=== PATIENT | female | born 1960 | race Caucasian/White ===

== ENCOUNTER 2018-07-27 17:52 | Inpatient (IN) ==
[2018-07-27] MEDS ORDERED: Ibuprofen 600 MG TABLET PO ONE (18:15)
--- NOTE | 2018-07-27 18:17 | Emergency Department Note ---
Disposition Clinical Impression: UTI (urinary tract infection), Pyelonephritis, Sepsis Disposition: Admitted As Inpatient Condition: Fair Referrals: Lalitha Heller CNP [Primary Care Provider] - Forms: ED Satisfaction Letter, Work/School Release Time of Disposition: 19:47 ([facility]) Abdominal Pain HPI - General Chief Complaint: ED General Medical Stated Complaint: chills back pain, nausea Time Seen by Provider: 07/27/18 18:02 Source: patient Mode of arrival: ambulatory Limitations: no limitations Nursing Notes Reviewed: Yes Vital Signs Reviewed: Yes - History of Present Illness HPI Narrative: Fever abdominal pain and dysuria for 3-4 days. Patient does had increasing fever flank pain chills aches all over feeling of tired and weak now. Patient states that she is eating and drinking she denies any vomiting but she is naus eated. She denies any blurred vision double vision loss vision. States that she has had no diarrhea Pt Subjective Complaint: abdominal pain, flank pain Onset (ago): day(s) (4) Consistency: constant, Worsening Location: diffuse Pain Severity: moderate, severe Pain Scale: 8 Quality: aching Radiation: none Improves with: nothing Worsens with: nothing Associated symptoms: Reports: nausea, fever, chills, dysuria. Denies: vomiting, diarrhea, constipation, hematemesis, hematochezia, melena, hematuria, anorexia, syncope Treatments prior to arrival: none - Related Data Home Medications Medication Instructions Recorded Confirmed Unable To Obtain [Unable to Obtain] 07/27/18 07/27/18 Allergies Allergy/AdvReac Type Severity Reaction Status Date / Time Sulfa (Sulfonamide AdvReac See Verified 07/27/18 18:02 Antibiotics) Comments All systems ED: reviewed and negative except as stated. Constitutional: Reports: fever, chills, weakness Eyes: Denies: eye pain, eye discharge ENT ED: Denies: ear pain, throat pain Cardiovascular: Denies: chest pain, palpitations Respiratory: Denies: cough, dyspnea, wheezes Gastrointestinal: Reports: abdominal pain, nausea. Denies: vomiting Genitourinary: Reports: urgency, dysuria, frequency Musculoskeletal: Reports: back pain. Denies: neck pain Integumentary: Denies: rash, abrasion Neurological: Reports: weakness. Denies: headache Psychiatric: Denies: anxiety Endocrine: Reports: fatigue Hematological/Lymphatic: Denies: easy bleeding Allergic/Immunologic: Denies: facial swelling Abdominal Pain PMH - Past Medical History Medical history: Reports: hypertension, thyroid disease Female Surgical History: Reports: , cholecystectomy Psychiatric history: Reports: ADHD - Social History Smoking status: Never smoker Alcohol use: Reports: none Drug use: Reports: none Physical Exam - General Limitations: no limitations General appearance: alert, in no apparent distress - Head Head exam: atraumatic, normocephalic, normal inspection, other (Overall poor dentition) - Eye Eye exam: Present: normal appearance, PERRL, EOMI - ENT ENT exam: normal exam, normal oropharynx, mucous membranes dry, TM's normal bilaterally, normal external ear exam, other (Thickened secretions developed fetid breath) - Neck Neck exam: Present: normal inspection, full ROM, trachea midline - Chest Chest inspection: Present: normal inspection, symmetric chest wall rise - Respiratory Respiratory exam: Present: normal lung sounds bilaterally - Cardiovascular Cardiovascular exam: Present: tachycardia, systolic murmur - Abdominal Exam Abdominal exam: Present: soft, Non-Tender, normal bowel sounds. Absent: mass, pulsatile mass - Expanded Upper Extremity Exam Shoulder exam: Present: normal inspection, full ROM Arm exam: Present: normal inspection, full ROM Elbow exam: Present: normal inspection, full ROM Forearm/Wrist exam: Present: normal inspection, full ROM Hand exam: Present: normal inspection, full ROM Vascular exam: Normal: capillary refill, radial pulse - Expanded Lower Extremity Exam Hip/Pelvis exam: Present: normal inspection, full ROM Upper leg exam: Present: normal inspection, full ROM Knee exam: Present: normal inspection, full ROM Lower leg exam: Present: normal inspection, full ROM Ankle exam: Present: normal inspection, full ROM Foot/toe exam: Present: normal inspection, full ROM Neurovascular/Tendon exam: Present: normal capillary refill, normal fine/light touch. Absent: motor deficit, sensory deficit, tendon deficit Gait: observed and normal - Back Exam Back exam: Present: normal inspection, full ROM, tenderness - Neurological Exam Neurological exam: Present: alert, oriented X3, CN II-XII intact, normal gait - Psychiatric Psychiatric exam: Present: normal affect, normal mood - Skin Skin exam: Present: warm, dry, intact, normal color Course Course Narrative: Patient was immediately seen and examined vital signs tachycardic febrile patient showing early evidence of criteria for sepsis direction will be guided the swelling started on antibiotics given fluids and workup done for sepsis based on history - sepsis likely genitourinary Patient shows signs that she is got a urinary tract infection most likely consistent with a pyelonephritis which also she meet sepsis criteria as a result she will be admitted to the hospital for further management and IV antibiotics Coleen Fisher spoke with Dr. Haywood patient be transferred to [facility] - Reevaluation(s) Reevaluation #1: Patient may criteria by SIRS as well as by lactic acid anabolic's were started protocols were followed transferred to [facility] at this time patient is not showing signs of septic shock Vital Signs Temperature 102.9 F H 07/27/18 18:02 Pulse Rate 124 07/27/18 18:02 Respiratory Rate 16 07/27/18 18:02 Blood Pressure 119/80 07/27/18 18:02 O2 Sat by Pulse Oximetry 97 07/27/18 18:02 Temperature 102.9 F H 07/27/18 18:02 Pulse Rate 85 07/27/18 19:39 Respiratory Rate 16 07/27/18 19:39 Blood Pressure 122/66 07/27/18 19:39 O2 Sat by Pulse Oximetry 96 07/27/18 19:39 Oxygen Delivery Oxygen Delivery Room Air Abdominal Pain - Differential Diagnosis Differential Diagnosis: Likely: abdominal pain non-specific, other (UTI pneumonia) - Medical Records Medical records reviewed: Yes I reviewed the patient's medical records. - Lab Data Lab results reviewed: Yes I reviewed the patient's lab results. Result diagrams: 07/27/18 06:40 07/27/18 06:40 Lab Results 07/27/18 07/27/18 07/27/18 Range/Units 06:40 06:40 06:40 WBC 20.2 H (4.3-11.1) K/mcL RBC 3.44 L (3.82-4.97) M/mcL Hgb 9.9 L (11.5-15.4) g/dL Hct 29.8 L (35.3-44.9) % MCV 86.6 (83.0-100.0) fL MCH 28.8 (28.0-33.3) pg MCHC 33.2 (31.6-35.5) g/dL RDW 13.9 (11.5-14.5) % Plt Count 196 (140-400) K/mcL MPV 10.4 (9.4-12.4) fL Immature Gran % 2.8 (0-4) % Seg Neutrophils % 89.6 % Lymphocytes % 2.7 % Monocytes % 4.8 % Eosinophils % 0.0 % Basophils % 0.1 % Neutrophils # 18.1 H (1.6-8.9) K/mcL Lymphocytes # 0.6 (0.6-4.6) K/mcL Monocytes # 1.0 (0.0-1.3) K/mcL Eosinophils # 0.0 (0.0-0.6) K/mcL Basophils # 0.0 (0.0-0.2) K/mcL PT 18.7 H (9.4-12.1) Seconds INR 1.7 APTT 32.6 (26.0-36.0) Seconds Sodium (136-145) mEq/L Potassium (3.5-5.1) mEq/L Chloride (98-107) mEq/L Carbon Dioxide (23-29) mEq/L BUN (6-20) mg/dL Creatinine (0.60-1.20) mg/dL Est GFR ( Amer) (> 60) Est GFR (Non-Af Amer) (> 60) BUN/Creatinine Ratio (6-26) Glucose (70-105) mg/dL Calculated Osmolality (280-300) Lactic Acid (0.5-2.2) mmol/L Calcium (8.6-10.3) mg/dL Total Bilirubin (0.3-1.0) mg/dL AST (13-39) Units/L ALT (7-52) Units/L Alkaline Phosphatase (34-104) Units/L Serum Total Protein (6.4-8.9) g/dL Albumin (3.5-5.7) g/dL Globulin (2.4-3.5) g/dL Albumin/Globulin Ratio (1.1-2.2) Urine Color Yellow (Yellow) Urine Clarity Slightly Cloudy A (Clear) Urine pH 6.0 (5.0-8.0) pH Units Ur Specific [place] 1.015 (1.010-1.025) Urine Protein >=300 H (Neg-Trace) mg/dL Urine Glucose (UA) Normal (Normal) mg/dL Urine Ketones Negative (Negative) mg/dL Urine Blood Large H (Negative) Urine Nitrite Positive A (Negative) Urine Bilirubin Negative (Negative) Urine Urobilinogen Normal (Normal) mg/dL Ur Leukocyte Esterase Large H (Negative) Urine Microscopic RBC 5-15 H (0-3) per hpf Urine Microscopic WBC 15-30 H (0-3) per hpf Ur Squamous Epith Cells Few (None-Few) per lpf Urine Bacteria Moderate H (None-Few) per hpf Ur Culture Indicated? YES A (NO) 07/27/18 07/27/18 Range/Units 06:40 06:40 WBC (4.3-11.1) K/mcL RBC (3.82-4.97) M/mcL Hgb (11.5-15.4) g/dL Hct (35.3-44.9) % MCV (83.0-100.0) fL MCH (28.0-33.3) pg MCHC (31.6-35.5) g/dL RDW (11.5-14.5) % Plt Count (140-400) K/mcL MPV (9.4-12.4) fL Immature Gran % (0-4) % Seg Neutrophils % % Lymphocytes % % Monocytes % % Eosinophils % % Basophils % % Neutrophils # (1.6-8.9) K/mcL Lymphocytes # (0.6-4.6) K/mcL Monocytes # (0.0-1.3) K/mcL Eosinophils # (0.0-0.6) K/mcL Basophils # (0.0-0.2) K/mcL PT (9.4-12.1) Seconds INR APTT (26.0-36.0) Seconds Sodium 128 L (136-145) mEq/L Potassium 2.7 L (3.5-5.1) mEq/L Chloride 100 (98-107) mEq/L Carbon Dioxide 20 L (23-29) mEq/L BUN 47 H (6-20) mg/dL Creatinine 2.78 H (0.60-1.20) mg/dL Est GFR ( Amer) 21 L (> 60) Est GFR (Non-Af Amer) 18 L (> 60) BUN/Creatinine Ratio 17 (6-26) Glucose 189 H (70-105) mg/dL Calculated Osmolality 283 (280-300) Lactic Acid 3.0 H (0.5-2.2) mmol/L Calcium 9.1 (8.6-10.3) mg/dL Total Bilirubin 0.4 (0.3-1.0) mg/dL AST 13 (13-39) Units/L ALT 10 (7-52) Units/L Alkaline Phosphatase 81 (34-104) Units/L Serum Total Protein 10.0 H (6.4-8.9) g/dL Albumin 3.0 L (3.5-5.7) g/dL Globulin 7.0 H (2.4-3.5) g/dL Albumin/Globulin Ratio 0.4 L (1.1-2.2) Urine Color (Yellow) Urine Clarity (Clear) Urine pH (5.0-8.0) pH Units Ur Specific [place] (1.010-1.025) Urine Protein (Neg-Trace) mg/dL Urine Glucose (UA) (Normal) mg/dL Urine Ketones (Negative) mg/dL Urine Blood (Negative) Urine Nitrite (Negative) Urine Bilirubin (Negative) Urine Urobilinogen (Normal) mg/dL Ur Leukocyte Esterase (Negative) Urine Microscopic RBC (0-3) per hpf Urine Microscopic WBC (0-3) per hpf Ur Squamous Epith Cells (None-Few) per lpf Urine Bacteria (None-Few) per hpf Ur Culture Indicated? (NO) - Radiology Data Radiology results reviewed: Yes I reviewed the patient's radiology results. ITS Impressions Chest X-Ray 07/27/18 18:12 IMPRESSION: No evidence of pneumonia. D/ / David Peng MD / David Peng MD Interpreting Provider: David Peng MD - EKG Data EKG attestation: Yes I reviewed and interpreted this EKG. EKG results narrative: Sinus tach CA 129 QRS 98 QT to 97 access 51 Critical Care Time Critical Care Time: Yes Total Critical Care Time: 35 Attestation: High probability clinically significant life-threatening deterioration is patient's condition exclusive reportable showing evidence of sepsis working up the patient in ruling out the etiology for the symptoms Sepsis Event Note - Evaluation Current Stage of Suspected Sepsis: sepsis Possible Source of Sepsis: genitourinary - Focused Exam Date of Encounter: 07/27/18 Time of Encounter: 18:16 Vital Signs: Vital Signs Temp Pulse Resp BP Pulse Ox 07/27/18 19:39 85 16 122/66 96 07/27/18 19:10 95 16 132/73 97 07/27/18 18:02 102.9 F H 124 16 119/80 97 Respiratory Exam: Present: CTA bilaterally Cardiovascular Exam: Present: tachycardia Capillary Refill: < 2 seconds Peripheral Pulse Strength: 3+ normal Peripheral Pulse Location: Radial Skin Exam: normal turgor - Bedside Monitoring Bedside Ultrasound Performed: No Passive Leg raise/fluid bolus: not performed
[2018-07-27] MEDS: 0.9 % Sodium Chloride 1,000 ML IVC SCH ×3 (18:44→22:27)
[2018-07-27 18:45] LABS: Basophils % 0.1 %; Hematocrit 29.8 % (35.3-44.9); Hemoglobin 9.9 g/dL (11.5-15.4); Immature Granulocytes % 2.8 % (0-4); Lymphocytes # 0.6 K/mcL (0.6-4.6); Lymphocytes % 2.7 %; Mean Corpuscular HGB Conc 33.2 g/dL (31.6-35.5); Mean Corpuscular Hemoglobin 28.8 pg (28.0-33.3); Mean Corpuscular Volume 86.6 fL (83.0-100.0); Mean Platelet Volume 10.4 fL (9.4-12.4); Monocytes % 4.8 %; Neutrophils # 18.1 K/mcL (1.6-8.9); Platelet Count 196 K/mcL (140-400); Red Blood Count 3.44 M/mcL (3.82-4.97); Red Cell Distribution Width 13.9 % (11.5-14.5); Segmented Neutrophils % 89.6 %; White Blood Count 20.2 K/mcL (4.3-11.1)
[2018-07-27 18:46] LABS: Bilirubin,Urine Negative (Negative); Blood,Urine Large (Negative); Clarity,Urine Slightly Cloudy (Clear); Glucose,Urine (UA) Normal (Normal); Ketones,Urine Negative (Negative); Leukocyte Esterase,Urine Large (Negative); Nitrite,Urine Positive (Negative); Protein,Urine >=300 mg/dL (Neg-Trace); Specific Gravity,Urine 1.015 (1.010-1.025); Urobilinogen,Urine Normal (Normal)
[2018-07-27 18:48] LABS: Color,Urine Yellow (Yellow)
[2018-07-27 18:49] LABS: Bacteria,Urine Moderate per hpf (None-Few); Squamous Epithelial Cell,Urine Few per lpf (None-Few); WBC,Urine 15-30 per hpf (0-3)
[2018-07-27 18:50] LABS: INR 1.7; Prothrombin Time 18.7 Seconds (9.4-12.1)
[2018-07-27 18:53] LABS: Activated Partial Thrombo Time 32.6 Seconds (26.0-36.0)
[2018-07-27 19:01] LABS: Albumin/Globulin Ratio 0.4 (1.1-2.2); Bilirubin,Total 0.4 mg/dL (0.3-1.0); Calcium 9.1 mg/dL (8.6-10.3); Potassium 2.7 mEq/L (3.5-5.1)
[2018-07-27] MEDS ORDERED: Potassium Effervescent 25 MEQ TABLET.EFF PO ONE ×2 (19:54→21:20)
[2018-07-27] MEDS ORDERED: Ibuprofen 400 MG TABLET PO PRN (21:20)
[2018-07-27] MEDS ORDERED: Naloxone 0.4 MG/ML INJ IVP PRN (21:20)
[2018-07-27] MEDS ORDERED: Ondansetron 4 MG/2 ML VIAL IVP PRN (21:20)
[2018-07-27] MEDS ORDERED: *HR* HYDROcodone/Acet 5/325 mg TABLET PO PRN (21:20)
[2018-07-27] MEDS ORDERED: 0.9 % Sodium Chloride 1,000 ML IVC SCH (21:20)
[2018-07-28] MEDS: 0.9 % Sodium Chloride 1,000 ML IVC SCH (06:45)
[2018-07-28] MEDS ORDERED: Potassium Effervescent 25 MEQ TABLET.EFF PO ONE (08:00)
[2018-07-28] MEDS: cefTRIAXone 2,000 MG in Water for inj. (sterile) 20 ML IVPB SCH (11:00)
[2018-07-28] MEDS: Acetaminophen 325 MG TABLET PO PRN (17:14)
[2018-07-28 17:24] LABS: Basophils % 0.1 %; Eosinophils # 0.2 K/mcL (0.0-0.6); Hematocrit 28.7 % (35.3-44.9); Hemoglobin 9.5 g/dL (11.5-15.4); Immature Granulocytes % 1.6 % (0-4); Lymphocytes # 0.9 K/mcL (0.6-4.6); Lymphocytes % 4.1 %; Mean Corpuscular HGB Conc 33.1 g/dL (31.6-35.5); Mean Corpuscular Hemoglobin 28.9 pg (28.0-33.3); Mean Corpuscular Volume 87.2 fL (83.0-100.0); Mean Platelet Volume 10.7 fL (9.4-12.4); Monocytes # 1.4 K/mcL (0.0-1.3); Monocytes % 6.2 %; Platelet Count 209 K/mcL (140-400); Red Blood Count 3.29 M/mcL (3.82-4.97); Red Cell Distribution Width 14.4 % (11.5-14.5); White Blood Count 22.1 K/mcL (4.3-11.1)
[2018-07-28 17:29] LABS: Neutrophils # 19.2 K/mcL (1.6-8.9)
--- NOTE | 2018-07-28 17:33 | Internal Med History&Physical ---
Date of Encounter: 07/28/18 Time of Encounter: 14:00 Assessment and Plan (1) UTI (urinary tract infection) Current visit: Yes Status: Acute PLan is to have urine culture renal ultrasound iv fluids IV antibiotics will add levaquin pain control pt had sepsis but this is resolving will repeat white count will repeat lactic acid Qualifiers: Urinary tract infection type: acute pyelonephritis Qualified Code(s): N10 - Acute pyelonephritis (2) Acute renal failure (ARF) Current visit: Yes Status: Acute dehydrated will add IVF will get US will monitor labs will stop nsaid or any other renal irritant Qualifiers: Acute renal failure type: unspecified Qualified Code(s): N17.9 - Acute kidney failure, unspecified Internal Medicine - H&P: HPI Chief complaint: flank pain Admitted From: Home History of present illness: Ms. Recinos is a 58 year old female who presented to emergency department with vague complaints of flank and abdominal pain severe malaise, fever. She was fo und to have also tachycardia and leukocytosis. In the ED she was found to have UTI and likely pyelonephritis. Her vital signs improved with IV fluids. She was admitted to the medical floor for further evaluation and treatment. The patient has had continued spikes of fever up to 102. Her heart rate has been slightly high but improved from initial presentation. She continues to have some flank and abdominal pain but it is somewhat improved. She was given IV fluid and she is currently being treated with IV antibiotic. She denies previous history of kidney stone or surgery she denies chest pain. She had some nausea which is currently resolved. She has a history of hypothyroidism but has not recently taken her thyroid medication which is 50 g. - EXAM General appearance: WF cooperative alert, mod distress HEENT dental carries - Neck Neck exam: Present: normal inspection, full ROM - Respiratory Respiratory exam: Present: normal lung sounds bilaterally - Cardiovascular Cardiovascular exam: Present: tachycardia, systolic murmur - Abdominal Exam Abdominal exam: Present: soft, mild lower quad and flank-Tender, hyper bowel sounds. no rebound no guard Extremity no edema no lacerations - Back Exam Back exam: Present: mild flank pain to percussion - Neurological Exam Neurological exam: Present: alert, no gross deficits - Psychiatric Psychiatric exam: Present: normal affect, normal mood - Skin Skin exam: Present: warm, dry, intact, normal color flushed cheeks Past Med Surg Social Fam HX - Past Medical History Medical history: hypertension, thyroid disease Additional medical history: Anemia Psychiatric history: anxiety, ADHD - Past Surgical History Surgical History: , cholecystectomy, other Additional surgical history: Tubal Ligation - Social History Smoking Status: Never smoker Smokeless Tobacco Status: No Alcohol use: none Drug use: none Internal Medicine - H&P: Meds Levothyroxine [Synthroid] 50 mcg PO 0630 07/28/18 [History] amLODIPine [Norvasc] 5 mg PO DAILY 07/28/18 [History] Allergy/AdvReac Type Severity Reaction Status Date / Time Sulfa (Sulfonamide AdvReac See Verified 07/27/18 18:02 Antibiotics) Comments All Systems PM: A 10-system review of systems was performed and is negative for pertinent findings except as documented above in the HPI. - Constitutional Vitals: Temp Pulse Resp BP Pulse Ox 102.8 F H 90 16 114/68 95 07/28/18 17:09 07/28/18 17:09 07/28/18 17:09 07/28/18 17:09 07/28/18 17:09 Internal Med - H&P Results - Labs CBC & Chem 7: 07/28/18 17:20 07/27/18 06:40 Labs: Short CBC 07/27/18 Range/Units 06:40 WBC 20.2 H (4.3-11.1) K/mcL Hgb 9.9 L (11.5-15.4) g/dL Hct 29.8 L (35.3-44.9) % Plt Count 196 (140-400) K/mcL Neutrophils # 18.1 H (1.6-8.9) K/mcL BMP 07/27/18 06:40 Sodium 128 L Potassium 2.7 L Chloride 100 Carbon Dioxide 20 L BUN 47 H Creatinine 2.78 H Glucose 189 H Calcium 9.1 Liver Function 07/27/18 Range/Units 06:40 Total Bilirubin 0.4 (0.3-1.0) mg/dL AST 13 (13-39) Units/L ALT 10 (7-52) Units/L Alkaline Phosphatase 81 (34-104) Units/L Albumin 3.0 L (3.5-5.7) g/dL Urine 07/27/18 Range/Units 06:40 Urine Color Yellow (Yellow) Urine Clarity Slightly Cloudy A (Clear) Urine pH 6.0 (5.0-8.0) pH Units Ur Specific [place] 1.015 (1.010-1.025) Urine Protein >=300 H (Neg-Trace) mg/dL Urine Glucose (UA) Normal (Normal) mg/dL - Impressions ITS Impressions Chest X-Ray 07/27/18 18:12 IMPRESSION: No evidence of pneumonia. D/ / David Peng MD / David Peng MD Interpreting Provider: David Peng MD
[2018-07-28 17:42] LABS: Calcium 8.4 mg/dL (8.6-10.3); Potassium 3.1 mEq/L (3.5-5.1)
[2018-07-28] MEDS ORDERED: levoFLOXacin 500 MG/100 ML 500 MG/100 ML BAG IVPB ONE (18:00)
[2018-07-28 20:07] LABS: Acinetobacter baumannii by PCR Not Detected (Not Detect); Candida albicans by PCR Not Detected (Not Detect); Candida glabrata by PCR Not Detected (Not Detect); Candida krusei by PCR Not Detected (Not Detect); Candida parapsilosis by PCR Not Detected (Not Detect); Candida tropicalis by PCR Not Detected (Not Detect); Enterobacter cloacae Cmplx PCR Not Detected (Not Detect); Enterobacteriaceae by PCR DETECTED (Not Detect); Enterococcus by PCR Not Detected (Not Detect); Escherichia coli by PCR DETECTED (Not Detect); Klebsiella oxytoca by PCR Not Detected (Not Detect); Klebsiella pneumoniae by PCR Not Detected (Not Detect); Proteus by PCR Not Detected (Not Detect); Pseudomonas aeruginosa by PCR Not Detected (Not Detect); Serratia marcescens by PCR Not Detected (Not Detect); Staphylococcus aureus by PCR Not Detected (Not Detect); Staphylococcus by PCR Not Detected (Not Detect); Streptococcus agalactiae(B)PCR Not Detected (Not Detect); Streptococcus by PCR Not Detected (Not Detect); Streptococcus pneumoniae PCR Not Detected (Not Detect); Streptococcus pyogenes (A) PCR Not Detected (Not Detect); blaKPC Carbapenem-Resist Gene Not Detected (Not Detect)
[2018-07-28] MEDS: Ascorbic Acid 500 MG TABLET PO SCH (20:27)
[2018-07-28] MEDS: Lactobacillus 1 EACH CAP.SPRINK PO SCH (20:28)
[2018-07-29] MEDS: Acetaminophen 325 MG TABLET PO PRN ×2 (04:04→17:25)
[2018-07-29 06:13] LABS: Hematocrit 26.5 % (35.3-44.9); Hemoglobin 8.6 g/dL (11.5-15.4); Mean Corpuscular HGB Conc 32.5 g/dL (31.6-35.5); Mean Corpuscular Hemoglobin 28.4 pg (28.0-33.3); Mean Corpuscular Volume 87.5 fL (83.0-100.0); Mean Platelet Volume 11.2 fL (9.4-12.4); Platelet Count 183 K/mcL (140-400); Red Blood Count 3.03 M/mcL (3.82-4.97); Red Cell Distribution Width 14.5 % (11.5-14.5); White Blood Count 16.5 K/mcL (4.3-11.1)
[2018-07-29 06:53] LABS: Calcium 8.5 mg/dL (8.6-10.3); Potassium 3.1 mEq/L (3.5-5.1)
[2018-07-29 07:36] LABS: Thyroid Stimulating Hormone 13.554 mcIU/mL (0.340-5.600)
--- NOTE | 2018-07-29 08:55 | Electrocardiograph Report ---
[address] [place], [place] [address] Test Date: 2018-07-27 Pat Name: Josefina Recinos Department: 2000 Room: 117 Gender: F Grade Recorder: JANINA : 1960 Requested By: Veronika Trotter Order Number: [id number] Reading MD: Alejandro Celaya Measurements Intervals M[place] Rate: 103 P: 65 AL: 129 QRS: 51 QRSD: 98 T: 49 QT: 297 QTc: 357 Interpretive Statements SINUS TACHYCARDIA Electronically Signed On 07-29-2018 8:53:59 EDT by Alejandro Celaya
[2018-07-29] MEDS: Ascorbic Acid 500 MG TABLET PO SCH ×2 (09:35→20:13)
[2018-07-29] MEDS: Lactobacillus 1 EACH CAP.SPRINK PO SCH ×2 (09:35→20:13)
[2018-07-29] MEDS: Famotidine 20 MG TABLET PO SCH (09:36)
[2018-07-29] MEDS: cefTRIAXone 2,000 MG in Water for inj. (sterile) 20 ML IVPB SCH (09:36)
[2018-07-29] MEDS: amLODIPine 5 MG TABLET PO SCH (09:36)
--- NOTE | 2018-07-29 13:13 | Internal Med Progress Note ---
Date of Encounter: 07/29/18 Time of Encounter: 01:04 - Assessment and plan (1) UTI (urinary tract infection) Current Visit: Yes Status: Acute Qualifiers: Urinary tract infection type: acute pyelonephritis Qualified Code(s): N10 - Acute pyelonephritis (2) Acute renal failure (ARF) Current Visit: Yes Status: Acute Qualifiers: Acute renal failure type: unspecified Qualified Code(s): N17.9 - Acute kidney failure, unspecified - Subjective Interval history: Assessment and Plan (1) UTI (urinary tract infection) Current visit: Yes Status: Acute PLan is to have urine culture renal ultrasound iv fluids IV antibiotics will add levaquin pain control pt had sepsis but this is resolving lactic acid okay will repeat white count will Qualifiers: Urinary tract infection type: acute pyelonephritis Qualified Code(s): N10 - Acute pyelonephritis (2) Acute renal failure (ARF) Current visit: Yes Status: Acute dehydrated will add IVF will get US will monitor labs will stop nsaid or any other renal irritant Creatinine improving today from 2.7-2.1 Hemoglobin A1c pending Qualifiers: Acute renal failure type: unspecified Qualified Code(s): N17.9 - Acute kidney failure, unspecified (3) hypothyroidism noncompliance with therapy Current TSH 13 Mildly symptomatic with fatigue and general malaise Replacement increased to 125 g continue to monitor Free T4 pending We will check B12 Interval Hx Ms. Recinos is a 58 year old female who presented to emergency department with vague complaints of flank and abdominal pain severe malaise, fever. She was found to have also tachycardia and leukocytosis. In the ED she was found to have UTI and likely pyelonephritis. Her vital signs improved with IV fluids. She was admitted to the medical floor for further evaluation and treatment. The patient has had continued spikes of fever up to 102. Her heart rate has been slightly high but improved from initial presentation. She continues to have some flank and abdominal pain but it is somewhat improved. She was given IV fluid and she is currently being treated with IV antibiotic. She was originally treated with cefepime. She continued to have high fever and malaise and this was changed to IV Levaquin. Dose of Levaquin 500 mg because her renal function has been reduced. Renal ultrasound is still pending. . Creatinine slightly improving today from 2.7-2.1 potassium slightly low and will be replaced orally. She denies previous history of kidney stone or surgery she denies chest pain. She had some nausea which is currently resolved. She has a history of hypothyroidism but has not recently taken her thyroid medication which is 50 g. her TSH was elevated at 13 so we will increase her dose currently to 125 g and reevaluate. 2 blood cultures positive for Escherichia coli sensitivity pending. Patient has had some clinical improvement slow. Infectious disease consult placed for assistance and recommendations on type and length of therapy. - EXAM General appearance: WF cooperative alert, less distress HEENT dental carries - Neck Neck exam: Present: normal inspection, full ROM - Respiratory Respiratory exam: Present: normal lung sounds bilaterally - Cardiovascular Cardiovascular exam: Present: tachycardia, systolic murmur - Abdominal Exam Abdominal exam: Present: soft, mild lower quad and flank-Tender, hyper bowel sounds. no rebound no guard Extremity no edema no lacerations - Back Exam Back exam: Present: mild flank pain to percussion - Neurological Exam Neurological exam: Present: alert, no gross deficits - Psychiatric Psychiatric exam: Present: normal affect, normal mood - Skin Skin exam: Present: warm, dry, intact, normal color - Constitutional Vitals: Temp Pulse Resp BP Pulse Ox 98.2 F 70 15 115/64 97 07/29/18 08:48 07/29/18 08:48 07/29/18 08:48 07/29/18 08:48 07/29/18 08:48 Internal Medicine: Result - Labs CBC & Chem 7: 07/29/18 05:45 07/29/18 05:45 Labs: Short CBC 07/28/18 07/29/18 Range/Units 17:20 05:45 WBC 22.1 H 16.5 H (4.3-11.1) K/mcL Hgb 9.5 L 8.6 L (11.5-15.4) g/dL Hct 28.7 L 26.5 L (35.3-44.9) % Plt Count 209 183 (140-400) K/mcL Neutrophils # 19.2 H (1.6-8.9) K/mcL BMP 07/28/18 07/29/18 17:20 05:45 Sodium 134 L 137 Potassium 3.1 L 3.1 L Chloride 108 H 110 H Carbon Dioxide 20 L 20 L BUN 41 H 37 H Creatinine 2.27 H 2.15 H Glucose 101 103 Calcium 8.4 L 8.5 L - ABG Interpretation ABG results: PT/INR, D-dimer PT 18.7 Seconds (9.4-12.1) H 07/27/18 06:40 - VTE Documentation of Mechanical Device: Graduated compression elastic hosiery Consult Discharge Plan - Plan Referrals: Lalitha Heller, CRANBERRY GROWER [Primary Care Provider] -
[2018-07-29] MEDS ORDERED: Potassium Chloride Elixir 20 MEQ/15 ML UDC PO ONE (14:08)
[2018-07-29 14:30] LABS: Estimated Average Glucose 111 mg/dl
[2018-07-30] MEDS: Acetaminophen 325 MG TABLET PO PRN (00:07)
[2018-07-30 05:35] LABS: Hematocrit 26.7 % (35.3-44.9); Hemoglobin 8.6 g/dL (11.5-15.4); Mean Corpuscular HGB Conc 32.2 g/dL (31.6-35.5); Mean Corpuscular Hemoglobin 28.5 pg (28.0-33.3); Mean Corpuscular Volume 88.4 fL (83.0-100.0); Mean Platelet Volume 10.9 fL (9.4-12.4); Platelet Count 227 K/mcL (140-400); Red Blood Count 3.02 M/mcL (3.82-4.97); White Blood Count 12.8 K/mcL (4.3-11.1)
[2018-07-30 05:49] LABS: Potassium 3.4 mEq/L (3.5-5.1)
[2018-07-30] MEDS: amLODIPine 5 MG TABLET PO SCH (08:20)
[2018-07-30] MEDS: Lactobacillus 1 EACH CAP.SPRINK PO SCH ×2 (08:20→19:53)
[2018-07-30] MEDS: Famotidine 20 MG TABLET PO SCH (08:20)
[2018-07-30] MEDS: Ascorbic Acid 500 MG TABLET PO SCH ×2 (08:20→19:53)
[2018-07-30] MEDS: cefTRIAXone 2,000 MG in Water for inj. (sterile) 20 ML IVPB SCH (08:24)
[2018-07-30] MEDS ORDERED: Potassium Chloride Elixir 20 MEQ/15 ML UDC PO SCH (12:11)
--- NOTE | 2018-07-30 12:39 | Internal Med Progress Note ---
Date of Encounter: 07/30/18 Time of Encounter: 12:35 - Assessment and plan (1) Bacteremia due to Escherichia coli Current Visit: Yes Status: Acute Assessment and plan: No acute issues. Patient continues on IV antibiotics for urosepsis. Patient continues to have slight elevations to temperature with a recorded 100.3 oral temperature last evening. Patient's blood pressures remained stable. She states that she no longer has any dysuria and denies any rigors. We will continue with current plan of care (2) Hypertension Current Visit: Yes Status: Acute Assessment and plan: Vital signs are stable. We will continue with current medications. Qualifiers: Hypertension type: essential hypertension Qualified Code(s): I10 - Essential (primary) hypertension (3) Pyelonephritis Current Visit: Yes Status: Acute Assessment and plan: Patient continues on IV antibiotics. Denies any dysuria. We will continue to monitor. - Time Spent With Patient less than 15 minutes - Subjective Interval history: Appears relaxed and denies any discomforts or shortness of breath. Patient states that she no longer has dysuria when voiding. Denies any fever or chills - Constitutional Vitals: Temp Pulse Resp BP Pulse Ox 98.2 F 65 18 117/76 100 07/30/18 08:00 07/30/18 08:00 07/30/18 08:00 07/30/18 08:00 07/30/18 08:00 General appearance: Present: A&O X 3, pleasant - Head Head exam: Present: atraumatic, normocephalic - Eye Eye exam: Present: PERRL, conjuntiva pink, sclera anicteric Pupils: Present: PERRL - Neck Neck exam general surgery: Present: supple, trachea midline. Absent: lymph adenopathy - Respiratory Respiratory exam: Present: CTAB. Absent: accessory muscle use, rales, rhonchi, wheezes - Cardiovascular Cardiovascular exam: Present: RRR, +S1, +S2. Absent: diastolic murmur, gallop, rubs, systolic murmur - GI/Abdominal GI/Abdominal exam: Present: normal bowel sounds, soft, no peritoneal signs. Absent: distended, tenderness - Extremities Exam Extremities exam: Present: warm, radial pulses palpable and symmetrical. Absent: calf tenderness, cyanotic, pedal edema - Neurological Exam Neurological exam: Present: CN II-XII intact, oriented X3, no focal deficits. Absent: pronater drift, facial droop, speech deficit - Skin Skin exam: Present: dry, intact Internal Medicine: Result - Labs CBC & Chem 7: 07/30/18 05:15 07/30/18 05:15 Labs: Short CBC 07/30/18 Range/Units 05:15 WBC 12.8 H (4.3-11.1) K/mcL Hgb 8.6 L (11.5-15.4) g/dL Hct 26.7 L (35.3-44.9) % Plt Count 227 (140-400) K/mcL BMP 07/30/18 05:15 Sodium 136 Potassium 3.4 L Chloride 112 H Carbon Dioxide 21 L BUN 27 H Creatinine 1.88 H Glucose 111 H Calcium 9.0 - ABG Interpretation ABG results: PT/INR, D-dimer PT 18.7 Seconds (9.4-12.1) H 07/27/18 06:40 - VTE Documentation of Mechanical Device: Graduated compression elastic hosiery Consult Discharge Plan - Plan Referrals: Lalitha Heller, [facility] [facility] [Primary Care Provider] -
[2018-07-30 18:08] LABS: Bilirubin,Urine Negative (Negative); Blood,Urine Trace-intact (Negative); Clarity,Urine Slightly Cloudy (Clear); Glucose,Urine (UA) Normal (Normal); Ketones,Urine Negative (Negative); Leukocyte Esterase,Urine Small (Negative); Nitrite,Urine Negative (Negative); Protein,Urine 100 mg/dL (Neg-Trace); Urobilinogen,Urine Normal (Normal)
[2018-07-30 18:09] LABS: Color,Urine Light Yellow (Yellow)
[2018-07-30 18:12] LABS: RBC,Urine 0-3 per hpf (0-3)
[2018-07-30 18:13] LABS: Bacteria,Urine Few per hpf (None-Few); Squamous Epithelial Cell,Urine Few per lpf (None-Few)
[2018-07-30] MEDS: Potassium Chloride Elixir 20 MEQ/15 ML UDC PO SCH (19:53)
[2018-07-31 06:15] LABS: Hematocrit 27.1 % (35.3-44.9); Hemoglobin 8.7 g/dL (11.5-15.4); Mean Corpuscular HGB Conc 32.1 g/dL (31.6-35.5); Mean Corpuscular Hemoglobin 28.3 pg (28.0-33.3); Mean Corpuscular Volume 88.3 fL (83.0-100.0); Mean Platelet Volume 10.5 fL (9.4-12.4); Platelet Count 262 K/mcL (140-400); Red Blood Count 3.07 M/mcL (3.82-4.97); Red Cell Distribution Width 15.3 % (11.5-14.5); White Blood Count 15.4 K/mcL (4.3-11.1)
[2018-07-31 06:48] LABS: Calcium 8.7 mg/dL (8.6-10.3); Potassium 3.8 mEq/L (3.5-5.1)
[2018-07-31] MEDS: cefTRIAXone 2,000 MG in Water for inj. (sterile) 20 ML IVPB SCH (09:34)
[2018-07-31] MEDS: Potassium Chloride Elixir 20 MEQ/15 ML UDC PO SCH ×2 (09:35→21:21)
[2018-07-31] MEDS: Lactobacillus 1 EACH CAP.SPRINK PO SCH ×2 (09:35→21:22)
[2018-07-31] MEDS: amLODIPine 5 MG TABLET PO SCH (09:35)
[2018-07-31] MEDS: Ascorbic Acid 500 MG TABLET PO SCH ×2 (09:35→21:21)
[2018-07-31] MEDS: Famotidine 20 MG TABLET PO SCH (09:35)
[2018-07-31] MEDS: Piperacillin/Tazobactam 3.375 GM in 0.9 % Sodium Chloride Mini Bag 100 ML IVPB SCH (16:22)
--- NOTE | 2018-07-31 17:33 | Internal Med Progress Note ---
Date of Encounter: 07/31/18 Time of Encounter: 17:32 - Assessment and plan (1) Bacteremia due to Escherichia coli Current Visit: Yes Status: Acute Assessment and plan: No acute issues. Patient continues on IV antibiotics for urosepsis. Patient continues to have slight elevations to temperature with a recorded 100.3 oral temperature last evening. Patient's blood pressures remained stable. She states that she no longer has any dysuria and denies any rigors. We will continue with current plan of care, except patient will be changed on her antibiotics to Invanz (2) Hypertension Current Visit: Yes Status: Acute Assessment and plan: Vital signs are stable. We will continue with current medications. Qualifiers: Hypertension type: essential hypertension Qualified Code(s): I10 - Essential (primary) hypertension (3) Pyelonephritis Current Visit: Yes Status: Acute Assessment and plan: Patient continues on IV antibiotics. Denies any dysuria. We will continue to monitor. - Time Spent With Patient less than 15 minutes - Subjective Interval history: Appears relaxed and denies any discomforts or shortness of breath. Patient states that she no longer has dysuria when voiding. Denies any fever or chills - Constitutional Vitals: Temp Pulse Resp BP Pulse Ox 98.2 F 69 18 119/71 99 07/31/18 15:16 07/31/18 15:16 07/31/18 15:16 07/31/18 15:16 07/31/18 15:16 General appearance: Present: A&O X 3, pleasant Internal Medicine: Result - Labs CBC & Chem 7: 07/31/18 05:35 07/31/18 05:35 Labs: Short CBC 07/31/18 Range/Units 05:35 WBC 15.4 H (4.3-11.1) K/mcL Hgb 8.7 L (11.5-15.4) g/dL Hct 27.1 L (35.3-44.9) % Plt Count 262 (140-400) K/mcL BMP 07/31/18 05:35 Sodium 135 L Potassium 3.8 Chloride 111 H Carbon Dioxide 21 L BUN 19 Creatinine 1.63 H Glucose 110 H Calcium 8.7 Urine 07/30/18 Range/Units 17:28 Urine Color Light Yellow (Yellow) Urine Clarity Slightly Cloudy A (Clear) Urine pH 7.0 (5.0-8.0) pH Units Ur Specific [place] 1.010 (1.010-1.025) Urine Protein 100 H (Neg-Trace) mg/dL Urine Glucose (UA) Normal (Normal) mg/dL - ABG Interpretation ABG results: PT/INR, D-dimer PT 18.7 Seconds (9.4-12.1) H 07/27/18 06:40 - VTE Documentation of Mechanical Device: Graduated compression elastic hosiery Consult Discharge Plan - Plan Referrals: Lalitha Heller, [employer] [Primary Care Provider] -
[2018-08-01] MEDS: Piperacillin/Tazobactam 3.375 GM in 0.9 % Sodium Chloride Mini Bag 100 ML IVPB SCH ×3 (00:10→17:30)
[2018-08-01 07:08] LABS: Hematocrit 26.6 % (35.3-44.9); Hemoglobin 8.7 g/dL (11.5-15.4); Mean Corpuscular HGB Conc 32.7 g/dL (31.6-35.5); Mean Corpuscular Hemoglobin 28.9 pg (28.0-33.3); Mean Corpuscular Volume 88.4 fL (83.0-100.0); Mean Platelet Volume 10.3 fL (9.4-12.4); Platelet Count 333 K/mcL (140-400); Red Blood Count 3.01 M/mcL (3.82-4.97); Red Cell Distribution Width 15.5 % (11.5-14.5); White Blood Count 17.2 K/mcL (4.3-11.1)
[2018-08-01 07:22] LABS: Calcium 8.8 mg/dL (8.6-10.3); Potassium 4.1 mEq/L (3.5-5.1)
[2018-08-01] MEDS: Potassium Chloride Elixir 20 MEQ/15 ML UDC PO SCH ×2 (08:30→22:24)
[2018-08-01] MEDS: Ascorbic Acid 500 MG TABLET PO SCH ×2 (08:30→22:24)
[2018-08-01] MEDS: Lactobacillus 1 EACH CAP.SPRINK PO SCH ×2 (08:30→22:24)
[2018-08-01] MEDS: amLODIPine 5 MG TABLET PO SCH (08:31)
[2018-08-01] MEDS: Famotidine 20 MG TABLET PO SCH (08:31)
[2018-08-01 09:01] LABS: % Iron Saturation 11 % (15-50); Iron 20 mcg/dL (50-170); Transferrin 134 mg/dL (203-362)
--- NOTE | 2018-08-01 10:34 | Internal Med Progress Note ---
Date of Encounter: 08/01/18 Time of Encounter: 10:32 - Assessment and plan (1) Bacteremia due to Escherichia coli Current Visit: Yes Status: Acute Assessment and plan: No acute issues. Patient continues on IV antibiotics for urosepsis, which has been changed to Zosyn. Today's labs were reviewed which shows a continued slight increase over the past 48 hours of the WBC count currently is 17.3. Patient also will have Diflucan added daily. Blood culture and urinalysis from 07/30 remain pending but no pulmonary growth has been reported. Patient has been afebrile for the past 48 hours. Patient's blood pressures remained stable. She states that she no longer has any dysuria and denies any rigors. (2) Hypertension Current Visit: Yes Status: Acute Assessment and plan: Vital signs are stable. We will continue with current medications. Qualifiers: Hypertension type: essential hypertension Qualified Code(s): I10 - Essential (primary) hypertension (3) Pyelonephritis Current Visit: Yes Status: Acute Assessment and plan: Patient continues on IV antibiotics. Denies any dysuria. We will continue to monitor. - Time Spent With Patient less than 15 minutes - Subjective Interval history: Appears relaxed and denies any discomforts or shortness of breath. Patient states that she no longer has dysuria when voiding. Denies any fever or chills and has remained afebrile for the past 48 hours. Patient's labs reviewed this morning and it showed a continued increase in the WBC count which is now greater than 17. Patient has recently been changed to Zosyn for antibiotics. - Constitutional Vitals: Temp Pulse Resp BP Pulse Ox 98.4 F 71 16 122/71 99 08/01/18 07:37 08/01/18 07:37 08/01/18 07:37 08/01/18 07:37 08/01/18 07:37 General appearance: Present: A&O X 3, pleasant - Head Head exam: Present: atraumatic, normocephalic - Eye Eye exam: Present: PERRL, conjuntiva pink, sclera anicteric Pupils: Present: PERRL - Neck Neck exam general surgery: Present: supple, trachea midline. Absent: lymphadenopathy - Respiratory Respiratory exam: Present: CTAB. Absent: accessory muscle use, rales, rhonchi, wheezes - Cardiovascular Cardiovascular exam: Present: RRR, +S1, +S2. Absent: diastolic murmur, gallop, rubs, systolic murmur - GI/Abdominal GI/Abdominal exam: Present: normal bowel sounds, soft, no peritoneal signs. Absent: distended, tenderness - Extremities Exam Extremities exam: Present: warm, radial pulses palpable and symmetrical. Absent: calf tenderness, cyanotic, pedal edema - Neurological Exam Neurological exam: Present: CN II-XII intact, oriented X3, no focal deficits. Absent: pronater drift, facial droop, speech deficit - Skin Skin exam: Present: dry, intact Internal Medicine: Result - Labs CBC & Chem 7: 08/01/18 06:22 08/01/18 06:22 Labs: Short CBC 08/01/18 Range/Units 06:22 WBC 17.2 H (4.3-11.1) K/mcL Hgb 8.7 L (11.5-15.4) g/dL Hct 26.6 L (35.3-44.9) % Plt Count 333 (140-400) K/mcL [facility] 08/01/18 06:22 Sodium 135 L Potassium 4.1 Chloride 110 H Carbon Dioxide 19 L BUN 17 Creatinine 1.62 H Glucose 93 Calcium 8.8 - ABG Interpretation ABG results: PT/INR, D-dimer PT 18.7 Seconds (9.4-12.1) H 07/27/18 06:40 - VTE Documentation of Mechanical Device: Graduated compression elastic hosiery Consult Discharge Plan - Plan Referrals: Lalitha Heller, [employer] [Primary Care Provider] -
[2018-08-01] MEDS: Fluconazole 200 MG/100 ML 200 MG/100 ML BAG IVPB SCH (13:04)
[2018-08-01 13:23] LABS: Bilirubin,Urine Negative (Negative); Blood,Urine Trace-intact (Negative); Clarity,Urine Clear (Clear); Color,Urine Yellow (Yellow); Glucose,Urine (UA) Normal (Normal); Ketones,Urine Negative (Negative); Leukocyte Esterase,Urine Small (Negative); Nitrite,Urine Negative (Negative); Protein,Urine 30 mg/dL (Neg-Trace); Specific Gravity,Urine 1.015 (1.010-1.025); Urobilinogen,Urine Normal (Normal)
[2018-08-01 13:32] LABS: RBC,Urine 0-3 per hpf (0-3); Squamous Epithelial Cell,Urine Many per lpf (None-Few); WBC,Urine 15-30 per hpf (0-3)
[2018-08-02] MEDS: Piperacillin/Tazobactam 3.375 GM in 0.9 % Sodium Chloride Mini Bag 100 ML IVPB SCH ×2 (00:33→09:26)
[2018-08-02 05:07] LABS: Hematocrit 28.5 % (35.3-44.9); Hemoglobin 8.9 g/dL (11.5-15.4); Mean Corpuscular HGB Conc 31.2 g/dL (31.6-35.5); Mean Corpuscular Hemoglobin 28.1 pg (28.0-33.3); Mean Corpuscular Volume 89.9 fL (83.0-100.0); Mean Platelet Volume 9.8 fL (9.4-12.4); Platelet Count 397 K/mcL (140-400); Red Blood Count 3.17 M/mcL (3.82-4.97); Red Cell Distribution Width 15.3 % (11.5-14.5); White Blood Count 14.8 K/mcL (4.3-11.1)
[2018-08-02 05:20] LABS: Calcium 8.9 mg/dL (8.6-10.3); Potassium 3.9 mEq/L (3.5-5.1)
[2018-08-02 05:57] LABS: Thyroid Stimulating Hormone 22.288 mcIU/mL (0.340-5.600)
[2018-08-02] MEDS: Fluconazole 200 MG/100 ML 200 MG/100 ML BAG IVPB SCH (09:25)
[2018-08-02] MEDS: Lactobacillus 1 EACH CAP.SPRINK PO SCH (09:26)
[2018-08-02] MEDS: Ascorbic Acid 500 MG TABLET PO SCH (09:26)
[2018-08-02] MEDS: Famotidine 20 MG TABLET PO SCH (09:27)
[2018-08-02] MEDS: amLODIPine 5 MG TABLET PO SCH (09:27)
[2018-08-02] MEDS: Potassium Chloride Elixir 20 MEQ/15 ML UDC PO SCH (09:27)
[2018-08-02 11:51] VITALS: BP 144/83
--- NOTE | 2018-08-02 12:26 | Discharge Summary ---
Orders not resulted at time of discharge: Pending orders 07/29/18 05:45 Free [facility] AM 0400 07/30/18 18:10 Culture,Blood [BC] Routine 08/01/18 12:00 Culture,Urine [RM] Routine Date of Encounter: 08/02/18 Time of Encounter: 12:26 - Discharge Diagnosis (1) Bacteremia due to Escherichia coli Priority: Primary Status: Acute Comments: Patient was admitted to this facility for UTI and for urosepsis. Patient has been treated with antibiotics for several days and was noted to have fluctuation of her WBC count. Patient's WBC count currently has been dropping to 14.8. Patient has been afebrile for 3 days. She denies any dysuria, fever/chills. Patient will be discharged with a prescription for her oral antibiotics and is to follow up with her PCP for further management (2) Hypertension Priority: Secondary Status: Chronic Comments: No acute issues during her stay. Patient is to continue with current medications and follow-up with PCP for further management Qualifiers: Hypertension type: essential hypertension Qualified Code(s): I10 - Essential (primary) hypertension (3) Pyelonephritis Priority: Secondary Status: Acute Comments: Patient continues on antibiotics for her urosepsis and pyelonephritis. Patient's renal function has improved over the past several days with her last creatinine at 1.48. Patient's continue follow-up with her PCP. Hospital course: Ms. Recinos is a 58 year old female , who was admitted to this facility after experiencing dysuria. Patient was found to have a UTI and also was positive on blood cultures and was admitted to her nursing unit for further IV antibiotics. Over the course of the last several days patient's WBC count has fluctuated but currently is decreasing with today's reading of 14.8. When patient was admitted she was also experiencing acute renal failure, but her renal function has also improved over the past several days with most recent creatinine at 1.48. Patient states that her dysuria has resolved and denies any further fever/chills. Patient has been afebrile for 3 days. Patient is being discharged to home and is to continue on oral antibiotics and was recommended to follow up with her PCP within this week for further evaluation Discharge discussed with: patient Time spent discussing smoking cessation with patient: 3 to 10 minutes - Time Spent with Patient Total time spent providing and/or coordinating discharge services: Time spent: Less than 30 minutes - Discharge Medications Prescriptions: No Action amLODIPine [Norvasc] 5 mg PO DAILY Levothyroxine [Synthroid] 50 mcg PO 0630 Home Medications: Levothyroxine [Synthroid] 50 mcg PO 0630 07/28/18 [History] amLODIPine [Norvasc] 5 mg PO DAILY 07/28/18 [History] Allergies/Adverse Reactions: Allergy/AdvReac Type Severity Reaction Status Date / Time Sulfa (Sulfonamide AdvReac See Verified 07/27/18 18:02 Antibiotics) Comments Date of admission: 07/27/18 22:00 Primary care physician: Lalitha Heller CNP Consults: 07/30/18 15:50 Consult to Occupational Therapy [CONS] Routine Comment: Evaluate, develop and implement POC Reason for Consult: Patient with weakness and debility. being treated for sepsis and pyelonephritis. Please eval for recs for homegoing and self care Does patient have active BEDREST order?: No Is patient medically & hemodynamically stable?: Yes Consult to Physical Therapy [CONS] Routine Comment: Evaluate, develop and implement POC Reason for Consult: Patient with weakness and debility- being treated for sepsis and pyelonephritis. Please eval for recs for homegoing and self care Does patient have active BEDREST order?: No Is patient medically & hemodynamically stable?: Yes Discharging clinician: Kamini Batista - Constitutional Vitals: Temp Pulse Resp BP Pulse Ox 98.0 F 64 16 144/83 99 08/02/18 11:50 08/02/18 11:50 08/02/18 11:50 08/02/18 11:50 08/02/18 11:50 General appearance: Present: A&O X 3, pleasant - Patient Status Disposition: Home, Self-Care Condition: Good Functional capacity at discharge: independent ambulation Overall status at discharge: patient is progressing back to baseline - Discharge Instructions Follow Up With: Lalitha Heller CNP [Primary Care Provider] - 08/05/18 11:00 am - Diet and Activity Activity: increase activity as tolerated Diet: low fat, low cholesterol, low salt diet - VTE Documentation of Mechanical Device: Graduated compression elastic hosiery
== END 2018-08-02 14:40 | disposition home or self-care (01) | DRG 720 ==
LOC: INPGRE 17:52 → EMEROOGRE 17:52 → INPGRE 21:08
PROVIDERS: ADMIT Internal Medicine; ATTEND Internal Medicine